=== PATIENT | female | born 1980 | race Caucasian/White ===

== ENCOUNTER 2020-07-13 19:43 | Emergency (ER) | payer OTHER ==
[~2020-07-13] VITALS: Ht 170.2 cm; Wt 88.0 kg
[2020-07-13 19:54] VITALS: BP 142/74
--- NOTE | 2020-07-13 20:02 | NUR ---
PT AMBULATED TO BED #4
--- NOTE | 2020-07-13 20:10 | NUR ---
40 YO F BIB SELF FOR C/C OF 10 RUQ/MID EPIGASTRIC CHRONIC PAIN X2 YEARS. PT STATES HER PAIN IS ALWAYS THERE IN ALL POSITIONS. DENIES N/V/D. LBM WAS TODAY SOFT AND FORMED. BOWEL SOUNDS NORMOACTIVE THROUGHOUT. DENIES TAKING ANY OTC MEDS FOR PAIN, DENIES ALCOHOL USE. NO MED HX NO RX NKA
--- NOTE | 2020-07-13 20:10 | NUR ---
Dr. Pena examining patient.
[2020-07-13] MEDS ORDERED: FAMOTIDINE 20 MG TAB PO ONE (20:20)
[2020-07-13] MEDS ORDERED: SUCRALFATE 1 GM TAB PO SCH (20:20)
[2020-07-13] MEDS ORDERED: KETOROLAC 30 MG/ML VIAL IM ONE (20:20)
[2020-07-13] MEDS ORDERED: ALUMINUM HYD/MAG/SIMETHICONE 30 ML UDC PO ONE (20:20)
--- NOTE | 2020-07-13 21:11 | NUR ---
PT STATES HER PAIN IS UNIMPROVED 10/10. ERMD MADE AWARE OF PT REQUESTING MORE PAIN CONTROL.
[2020-07-13 21:22] VITALS: BP 142/74
--- NOTE | 2020-07-13 21:22 | NUR ---
Patient discharged with v/s stable. Written and verbal after care instructions given and explained. Patient alert, oriented and verbalized understanding of instructions. Ambulatory with steady gait. All questions addressed prior to discharge. ID band removed. Patient advised to follow up with PMD. Rx of MAALOX, PEPCID, NORCO, OMEPRAZOLE, CARAFATE given. Patient educated on indication of medication including possible reaction and side effects. Opportunity to ask questions provided and answered.
== END 2020-07-13 21:22 | disposition home or self-care (01) ==
LOC: MED 19:43
DX: R10.11 Right upper quadrant pain (principal); F12.90 Cannabis use, unspecified, uncomplicated; Z98.890 Other specified postprocedural states
CPT/HCPCS: 96372; 99283; J1885; 99284

== ENCOUNTER 2021-06-20 05:15 | Emergency (ER) | payer OTHER ==
[~2021-06-20] VITALS: Ht 165.1 cm; Wt 88.5 kg
[2021-06-20 05:26] VITALS: BP 154/82
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
--- NOTE | 2021-06-20 05:31 | NUR ---
PT TAKEN TO BED 8
--- NOTE | 2021-06-20 05:33 | NUR ---
Dr. Ferrera examining patient.
[2021-06-20] MEDS ORDERED: methylPREDNISolone SS 125 MG in WATER STERILE 2 ML IM ONE (05:40)
[2021-06-20] MEDS ORDERED: diphenhydrAMINE 50 MG/ML VIAL IM ONE (05:40)
[2021-06-20] MEDS ORDERED: WATER STERILE 10 ML MC ONE (05:46)
[2021-06-20] MEDS ORDERED: methylPREDNISolone SS 125 MG/2 ML VIAL ONE (05:46)
--- NOTE | 2021-06-20 05:57 | NUR ---
Dr. Roberto examining patient.
[2021-06-20] MEDS ORDERED: ZOLP5TAB1 PO (06:14)
[2021-06-20] MEDS ORDERED: FAMO-92 PO (06:14)
[2021-06-20] MEDS ORDERED: FEXO180T82 PO (06:14)
[2021-06-20 06:20] VITALS: BP 154/82
--- NOTE | 2021-06-20 06:20 | NUR ---
Patient discharged with v/s stable. Written and verbal after care instructions given and explained. Patient alert, oriented and verbalized understanding of instructions. Ambulatory with steady gait. All questions addressed prior to discharge. ID band removed. Patient advised to follow up with PMD. Rx of PEPCID, TARYN ALLERGY, AND AMBIEN given. Patient educated on indication of medication including possible reaction and side effects. Opportunity to ask questions provided and answered.
== END 2021-06-20 06:20 | disposition home or self-care (01) ==
LOC: MED 05:15
DX: T78.40XA Allergy, unspecified, initial encounter (principal); Z79.899 Other long term (current) drug therapy; Z98.890 Other specified postprocedural states; X58.XXXA Exposure to other specified factors, initial encounter
CPT/HCPCS: 96372; 99284; J1200; J2930

== ENCOUNTER 2021-06-22 00:20 | Emergency (ER) | payer OTHER ==
[~2021-06-22] VITALS: Ht 167.6 cm; Wt 91.2 kg
[~2021-06-22 00:20] MED LIST: FAMO-92 PO; FEXO180T82 PO; ZOLP5TAB1 PO
[2021-06-22 00:25] VITALS: BP 136/93
--- NOTE | 2021-06-22 00:29 | NUR ---
PATIENT AMBUALTED TO LOBBY WITH STEADY GAIT.
--- NOTE | 2021-06-22 01:30 | NUR ---
TO BED AMBULATORY
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
[2021-06-22] MEDS ORDERED: methylPREDNISolone SS 125 MG/2 ML VIAL IM ONE (02:15)
[2021-06-22] MEDS ORDERED: HYD1C TP (02:58)
[2021-06-22] MEDS ORDERED: PRED20TA5 PO (02:58)
[2021-06-22] MEDS ORDERED: DIPH25TA53 PO (02:58)
[2021-06-22 03:09] VITALS: BP 131/71
--- NOTE | 2021-06-22 03:09 | NUR ---
Patient discharged with v/s stable. Written and verbal after care instructions given and explained. Patient alert, oriented and verbalized understanding of instructions. Ambulatory with steady gait. All questions addressed prior to discharge. ID band removed. Patient advised to follow up with PMD. Rx of Benadryl, hydrocortisone 1%, deltasone given. Patient educated on indication of medication including possible reaction and side effects. Opportunity to ask questions provided and answered.
== END 2021-06-22 03:09 | disposition home or self-care (01) ==
LOC: MED 00:20
DX: L50.0 Allergic urticaria (principal); L20.9 Atopic dermatitis, unspecified; Z79.899 Other long term (current) drug therapy
CPT/HCPCS: 96372; 99283; J2930; Q0163

== ENCOUNTER 2021-06-25 02:13 | Emergency (ER) | payer OTHER ==
[~2021-06-25] VITALS: Ht 170.2 cm; Wt 91.6 kg
[~2021-06-25 02:13] MED LIST changes: +DIPH25TA53 PO; +HYD1C TP; +PRED20TA5 PO
[2021-06-25 02:18] VITALS: BP 136/103
[2021-06-25] MEDS ORDERED: CEPH-588 PO (02:51)
[2021-06-25 03:00] VITALS: BP 136/103
== END 2021-06-25 03:00 | disposition home or self-care (01) ==
LOC: MED 02:13
DX: R21 Rash and other nonspecific skin eruption (principal); Z79.899 Other long term (current) drug therapy
CPT/HCPCS: 99283

== ENCOUNTER 2021-10-03 00:34 | Emergency (ER) | payer OTHER ==
[~2021-10-03] VITALS: Ht 165.1 cm; Wt 92.5 kg
[~2021-10-03 00:34] MED LIST changes: +CEPH-588 PO
[2021-10-03 00:48] VITALS: BP 143/100
--- NOTE | 2021-10-03 00:55 | NUR ---
PT AMBULATED TO BED 02.
--- NOTE | 2021-10-03 01:48 | NUR ---
PT PRESENTED TO THE ED ACCOMPANIED W/ BOYFRIEND, CC OF THROAT IRRITATION, PT STATED "GENERALIZED PAIN ALL OVER HER BODY WITH PAIN SCALE OF 10/10 AND THROAT IRRITATION SORENESS", PT A&OX4, ABLE TO MAKE NEEDS KNOWN AND FOLLOW COMMANDS, VSS, NO SIGNS OF ACUTE DISTRESS AT THIS MOMENT NO PMH ALLERGIES": VITAMIN E
[2021-10-03] MEDS ORDERED: LORazepam 1 MG TAB PO ONE (02:15)
[2021-10-03] MEDS ORDERED: DEXAMETHASONE 4 MG/ML VIAL PO ONE (02:15)
[2021-10-03] MEDS ORDERED: DEXAMETHASONE 4 MG TAB PO ONE (02:25)
[2021-10-03 02:46] VITALS: BP 143/100
--- NOTE | 2021-10-03 02:47 | NUR ---
Patient discharged with v/s stable. Written and verbal after care instructions given and explained. Patient verbalized understanding. Ambulatory with steady gait. All questions addressed prior to discharge. Advised to follow up with PMD.
== END 2021-10-03 02:47 | disposition home or self-care (01) ==
LOC: MED 00:34
DX: R21 Rash and other nonspecific skin eruption (principal); F12.90 Cannabis use, unspecified, uncomplicated; Z79.899 Other long term (current) drug therapy; Z98.890 Other specified postprocedural states
CPT/HCPCS: 99283; J1100